=== PATIENT | male | born 1955 | race Caucasian/White ===

== ENCOUNTER 2016-10-09 07:15 | Emergency (ER) | payer SELFPAY ==
--- NOTE | 2016-10-09 07:44 | EDM.PDOC ---
ED HPI GENERAL MEDICAL PROBLEM - General Chief Complaint: Genitourinary Problem Stated Complaint: SICK Time Seen by Provider: 10/09/16 07:43 Source of Information: Reports: Patient History Limitations: Reports: No Limitations - History of Present Illness INITIAL COMMENTS - FREE TEXT/NARRATIVE: HISTORY AND PHYSICAL: History of present illness: [61-year-old male with a history of prior urinary tract infection patient of Dr. Styles shaking the urologist, now presents emergency department feeling like he still needs to urinate even immediately after voiding. His been having these symptoms for about 2 days. Patient goes to the bathroom and then feels like he still needs to go. It's now become unbearable so he came to the emergency department. No fevers chills sweats or shaking chills. Patient has no history of prostate pathology or prior urinary retention Review of systems: As per history of present illness and below otherwise all systems reviewed and negative. Past medical history: As per history of present illness and as reviewed below otherwise noncontributory. Surgical history: As per history of present illness and as reviewed below otherwise noncontributory. Social history: No reported history of drug or alcohol abuse. Family history: As per history of present illness and as reviewed below otherwise noncontributory. Physical exam: After Velez catheter placement patient is smiling well-appearing and asymptomatic. He has no suprapubic tenderness. 500 mL of urine output and Velez bag clear urine no hematuria yellow in color no CVA tenderness nontender abdomen and pelvis. No penile or testicular abnormality HEENT: Atraumatic, normocephalic, pupils reactive, negative for conjunctival pallor or scleral icterus, mucous membranes moist, throat clear, neck supple, nontender, trachea midline. Lungs: Clear to auscultation, breath sounds equal bilaterally, chest nontender. Heart: S1S2, regular, negative for clicks, rubs, or JVD. Abdomen: Soft, nondistended, nontender. Negative for masses or hepatosplenomegaly. Negative for costovertebral tenderness. Pelvis: Stable nontender. Genitourinary: Deferred. Rectal: Deferred. Extremities: Atraumatic, negative for cords or calf pain. Neurovascular unremarkable. Neuro: Awake, alert, oriented. Cranial nerves grossly unremarkable. Cerebellum unremarkable. Motor and sensory unremarkable throughout. Exam nonfocal. Diagnostics: [] Therapeutics: [Velez catheter placement by nurse/ER Tomi After assessment of 500 mL residual postvoid with bladder scanner No complications of placement. 500 mL urine output. Patient tolerated well no complications is now smiling and feels great. Impression: [Acute urinary retention] Plan: [Signs and symptoms consistent with new onset acute urinary retention in a 7- year-old patient with no history thereof he does see urologist as previously had a UTI but never had any prostate problems nor any issues with obstruction or retention. He is asymptomatic after Velez catheter placement and urinalysis pending as well as a BMP to assess renal function. Will discuss case with Dr. Genaro Lopez patients urologist and arrange outpatient follow-up. Labs are unremarkable patient agrees with outpatient follow-up and strict return precautions will be given. Patient will use the Velez with a leg bag until follow-up with urology] Definitive disposition and diagnosis as appropriate pending reevaluation and review of above. - Related Data Allergies Allergy/AdvReac Type Severity Reaction Status Date / Time No Known Allergies Allergy Verified 10/09/16 07:28 Home Meds: Home Meds Cephalexin [Keflex] 500 mg PO QID 14 Days 10/09/16 [Rx] Tamsulosin HCl [Flomax] 0.4 mg PO DAILY #10 cap.er.24h 10/09/16 [Rx] Past Medical History - Past Health History Medical/Surgical History: Denies Medical/Surgical History HEENT History: Reports: Hard of Hearing Other HEENT History: wears glasses Cardiovascular History: Reports: None Other Cardiovascular History: is taking an OTC medication for hypertension Respiratory History: Reports: None Gastrointestinal History: Reports: None Genitourinary History: Reports: None Musculoskeletal History: Reports: Fracture Other Musculoskeletal History: right clavicle Neurological History: Reports: None Psychiatric History: Reports: None Endocrine/Metabolic History: Reports: Obesity/BMI 30+ Hematologic History: Reports: None Immunologic History: Reports: None Oncologic (Cancer) History: Reports: None Dermatologic History: Reports: None - Past Surgical History Head Surgeries/Procedures: Reports: None Cardiovascular Surgical History: Reports: None Respiratory Surgical History: Reports: None GI Surgical History: Reports: None Male Surgical History: Reports: None Endocrine Surgical History: Reports: None Neurological Surgical History: Reports: None Musculoskeletal Surgical History: Reports: None Oncologic Surgical History: Reports: None Dermatological Surgical History: Reports: None Social & Family History - Family History Family Medical History: Noncontributory - Tobacco Use Smoking Status *Q: Never Smoker - Caffeine Use Caffeine Use: Reports: Soda - Recreational Drug Use Recreational Drug Use: No Drug Use in Last 12 Months: No ED ROS GENERAL - Review of Systems Review Of Systems: See Below (History of present illness) ED EXAM, GENERAL - Physical Exam Exam: See Below (History of present illness) Course - Vital Signs Last Recorded V/S: Last Vital Signs Temp 37.2 C 10/09/16 07:24 Pulse 121 H 10/09/16 07:24 Resp 18 10/09/16 07:24 BP 198/113 H 10/09/16 07:24 Pulse Ox 94 L 10/09/16 07:24 - Orders/Labs/Meds Orders: Active Orders 24 hr Category Date Time Status Velez Catheter Insertion [Insert Urinary Catheter] [OM. Care 10/09/16 07:45 Ordered PC] Q24H Urinary Catheter Assessment [RC] ASDIRECTED Care 10/09/16 07:39 Active CULTURE URINE [RM] Stat Lab 10/09/16 07:50 Received Labs: Laboratory Tests 10/09/16 10/09/16 Range/Units 07:50 07:53 Sodium 142 (136-146) mmol/L Potassium 4.0 (3.5-5.1) mmol/L Chloride 108 (98-110) mmol/L Carbon Dioxide 23 (21-31) mmol/L BUN 16 (6.0-23.0) mg/dL Creatinine 0.9 (0.6-1.5) mg/dL Est Cr Clr Drug Dosing 87.28 mL/min Estimated GFR (MDRD) > 60.0 ml/min Glucose 121 H (60-110) mg/dL Calcium 9.3 (8.8-10.8) mg/dL Urine Color YELLOW Urine Appearance CLEAR Urine pH 7.0 (5.0-8.0) Ur Specific [place] 1.025 (1.001-1.035) Urine Protein >=300 (NEGATIVE) mg/dL Urine Glucose (UA) NEGATIVE (NEGATIVE) mg/dL Urine Ketones TRACE H (NEGATIVE) mg/dL Urine Occult Blood LARGE H (NEGATIVE) Urine Nitrite POSITIVE H (NEGATIVE) Urine Bilirubin NEGATIVE (NEGATIVE) Urine Urobilinogen 1.0 (<2.0) EU/dL Ur Leukocyte Esterase MODERATE (NEGATIVE) Urine RBC 55-60 (0-2/HPF) Urine WBC TO NUMEROUS TO COUNT H (0-5/HPF) Ur Epithelial Cells RARE (NONE-FEW) Urine Bacteria 1+ H (NEGATIVE) Meds: Medications Discontinued Medications Generic Name Dose Route Start Last Admin Trade Name Malika PRN Reason Stop Dose Admin Cephalexin 500 mg 10/09/16 08:16 10/09/16 08:36 Keflex PO 10/09/16 08:17 500 mg ONETIME ONE Administration Departure - Departure Time of Disposition: 08:30 Disposition: Home, Self-Care 01 Condition: Good Clinical Impression: Acute urinary retention - Discharge Information Prescriptions: Cephalexin [Keflex] 500 mg PO QID 14 Days Tamsulosin HCl [Flomax] 0.4 mg PO DAILY #10 cap.er.24h Instructions: Acute Urinary Retention, Male, [id number] Referrals: PCP,None [Primary Care Provider] - Genaro Lopez MD [Physician] - Forms: ED Department Discharge Additional Instructions: You're suffering from urinary retention today. This means that something was blocking your urine from getting out of your bladder was causing your discomfort. We placed a Velez catheter in your urine was drained and had relief this catheter will need to stay in place with a leg bag until follow-up with urology in several days. Take Flomax as directed daily, follow-up with Dr. Navarro as directed, and return immediately for new severe or worsening symptoms specifically if you suspect the tube may have been clogged if you are experiencing the same symptoms of needing to void without the ability to do so. - My Orders Last 24 Hours: My Active Orders 10/09/16 07:39 Urinary Catheter Assessment [RC] ASDIRECTED 10/09/16 07:45 Velez Catheter Insertion [Insert Urinary Catheter] [OM.PC] Q24H 10/09/16 07:50 CULTURE URINE [RM] Stat - Assessment/Plan Last 24 Hours: My Active Orders 10/09/16 07:39 Urinary Catheter Assessment [RC] ASDIRECTED 10/09/16 07:45 Velez Catheter Insertion [Insert Urinary Catheter] [OM.PC] Q24H 10/09/16 07:50 CULTURE URINE [RM] Stat
[2016-10-09] MEDS ORDERED: Cephalexin 500 MG Cap PO ONE (08:16)
[2016-10-09 08:30] LABS: CHLORIDE,CL 108 mmol/L (98-110); SODIUM,NA 142 mmol/L (136-146)
[2016-10-09 09:34] VITALS: BP 138/72
== END 2016-10-09 09:33 | disposition home or self-care (01) ==
LOC: MW.ED 07:15
DX: N39.0 Urinary tract infection, site not specified (principal); E66.9 Obesity, unspecified; Z79.899 Other long term (current) drug therapy; Z68.41 Body mass index [BMI] 40.0-44.9, adult
CPT/HCPCS: 36415; 51702; 80048; 81001; 87086; 99283; A9270

== ENCOUNTER 2017-02-03 09:06 | Emergency (ER) | payer SELFPAY ==
--- NOTE | 2017-02-03 09:21 | EDM.PDOC ---
ED HPI GENERAL MEDICAL PROBLEM - General Chief Complaint: Genitourinary Problem Stated Complaint: DIFFICULTY URINATING Time Seen by Provider: 02/03/17 09:06 - History of Present Illness INITIAL COMMENTS - FREE TEXT/NARRATIVE: HISTORY AND PHYSICAL: History of present illness: Patient is 62-year-old white male presents with concern of urinary retention 1 day patient has history of known prostate disease and is followed by urology he denies fever chills nausea vomiting or other complaints Review of systems: As per history of present illness and below otherwise all systems reviewed and negative. Past medical history: As per history of present illness and as reviewed below otherwise noncontributory. Surgical history: As per history of present illness and as reviewed below otherwise noncontributory. Social history: No reported history of drug or alcohol abuse. Family history: As per history of present illness and as reviewed below otherwise noncontributory. Physical exam: HEENT: Atraumatic, normocephalic, pupils reactive, negative for conjunctival pallor or scleral icterus, mucous membranes moist, throat clear, neck supple, nontender, trachea midline. Lungs: Clear to auscultation, breath sounds equal bilaterally, chest nontender. Heart: S1S2, regular, negative for clicks, rubs, or JVD. Abdomen: Soft, nondistended, suprapubic discomfort to palpation consistent with bladder distention. Negative for masses or hepatosplenomegaly. Negative for costovertebral tenderness. Pelvis: Stable nontender. Genitourinary: Deferred. Rectal: Deferred. Extremities: Atraumatic, negative for cords or calf pain. Neurovascular unremarkable. Neuro: Awake, alert, oriented. Cranial nerves II through XII unremarkable. Cerebellum unremarkable. Motor and sensory unremarkable throughout. Exam nonfocal. Diagnostics: CBC CMP UA urine C&S Therapeutics: Velez catheter with leg bag Impression: #1 acute urinary retention #2 history of prostatic hypertrophy Definitive disposition and diagnosis as appropriate pending reevaluation and review of above. penile area Pain Score (Numeric/FACES): 5 - Related Data Allergies Allergy/AdvReac Type Severity Reaction Status Date / Time No Known Allergies Allergy Verified 02/03/17 09:12 Home Meds: Home Meds Cephalexin [Keflex] 500 mg PO QID 14 Days capsule 10/09/16 [Rx] Tamsulosin HCl [Flomax] 0.4 mg PO DAILY #10 cap.er.24h 10/09/16 [Rx] Past Medical History - Past Health History Medical/Surgical History: Denies Medical/Surgical History HEENT History: Reports: Hard of Hearing Other HEENT History: wears glasses Cardiovascular History: Reports: None Other Cardiovascular History: is taking an OTC medication for hypertension Respiratory History: Reports: None Gastrointestinal History: Reports: None Genitourinary History: Reports: None Musculoskeletal History: Reports: Fracture Other Musculoskeletal History: right clavicle Neurological History: Reports: None Psychiatric History: Reports: None Endocrine/Metabolic History: Reports: Obesity/BMI 30+ Hematologic History: Reports: None Immunologic History: Reports: None Oncologic (Cancer) History: Reports: None Dermatologic History: Reports: None - Past Surgical History Head Surgeries/Procedures: Reports: None Cardiovascular Surgical History: Reports: None Respiratory Surgical History: Reports: None GI Surgical History: Reports: None Male Surgical History: Reports: None Endocrine Surgical History: Reports: None Neurological Surgical History: Reports: None Musculoskeletal Surgical History: Reports: None Oncologic Surgical History: Reports: None Dermatological Surgical History: Reports: None Social & Family History - Family History Family Medical History: Noncontributory - Tobacco Use Smoking Status *Q: Never Smoker - Caffeine Use Caffeine Use: Reports: Soda - Recreational Drug Use Recreational Drug Use: No Drug Use in Last 12 Months: No ED ROS GENERAL - Review of Systems Review Of Systems: ROS reveals no pertinent complaints other than HPI. ED EXAM, GENERAL - Physical Exam Exam: See Below (Dictation) Course - Vital Signs Last Recorded V/S: Last Vital Signs Temp 37.1 C 02/03/17 09:13 Pulse 100 02/03/17 09:13 Resp 18 02/03/17 09:13 BP 205/151 H 02/03/17 09:13 Pulse Ox 98 02/03/17 09:13 - Orders/Labs/Meds Orders: Active Orders 24 hr Category Date Time Status Insert Velez Catheter [Insert Urinary Catheter] [OM.PC] Care 02/03/17 09:15 Ordered Q24H Urinary Catheter Assessment [RC] ASDIRECTED Care 02/03/17 09:08 Active COMPREHENSIVE METABOLIC PN,CMP [CHEM] Stat Lab 02/03/17 09:38 Received CULTURE URINE [RM] Stat Lab 02/03/17 09:32 Received Labs: Laboratory Tests 02/03/17 02/03/17 Range/Units 09:32 09:38 WBC 6.60 (4.0-11.0) K/uL RBC 4.80 (4.50-5.90) M/uL Hgb 14.2 (13.0-17.0) g/dL Hct 42.6 (38.0-50.0) % MCV 88.8 (80.0-98.0) fL MCH 29.6 (27.0-32.0) pg MCHC 33.3 (31.0-37.0) g/dL RDW Std Deviation 41.4 (28.0-62.0) fl RDW Coeff of Quan 13 (11.0-15.0) % Plt Count 207 (150-400) K/uL MPV 10.30 (7.40-12.00) fL Neut % (Auto) 73.9 (48.0-80.0) % Lymph % (Auto) 17.7 (16.0-40.0) % Bibb % (Auto) 6.4 (0.0-15.0) % Eos % (Auto) 1.5 (0.0-7.0) % Baso % (Auto) 0.5 (0.0-1.5) % Neut # (Auto) 4.9 (1.4-5.7) K/uL Lymph # (Auto) 1.2 (0.6-2.4) K/uL Bibb # (Auto) 0.4 (0.0-0.8) K/uL Eos # (Auto) 0.1 (0.0-0.7) K/uL Baso # (Auto) 0.0 (0.0-0.1) K/uL Nucleated RBC % 0.0 /100WBC Nucleated RBCs # 0 K/uL Urine Color YELLOW Urine Appearance CLEAR Urine pH 6.0 (5.0-8.0) Ur Specific [place] 1.010 (1.001-1.035) Urine Protein NEGATIVE (NEGATIVE) mg/dL Urine Glucose (UA) NEGATIVE (NEGATIVE) mg/dL Urine Ketones NEGATIVE (NEGATIVE) mg/dL Urine Occult Blood NEGATIVE (NEGATIVE) Urine Nitrite NEGATIVE (NEGATIVE) Urine Bilirubin NEGATIVE (NEGATIVE) Urine Urobilinogen 0.2 (<2.0) EU/dL Ur Leukocyte Esterase NEGATIVE (NEGATIVE) Urine RBC 0-1 (0-2/HPF) Urine WBC 0-1 (0-5/HPF) Ur Epithelial Cells RARE (NONE-FEW) Urine Bacteria FEW (NEGATIVE) Departure - Departure Time of Disposition: 09:18 Disposition: Home, Self-Care 01 Condition: Good Clinical Impression: Urinary retention - Discharge Information Referrals: PCP,Unknown [Primary Care Provider] - Forms: ED Department Discharge Additional Instructions: The following information is given to patients seen in the emergency department who are being discharged to home. This information is to outline your options for follow-up care. We provide all patients seen in our emergency department with a follow-up referral. The need for follow-up, as well as the timing and circumstances, are variable depending upon the specifics of your emergency department visit. If you don't have a primary care physician on staff, we will provide you with a referral. We always advise you to contact your personal physician following an emergency department visit to inform them of the circumstance of the visit and for follow-up with them and/or the need for any referrals to a consulting specialist. The emergency department will also refer you to a specialist when appropriate. This referral assures that you have the opportunity for followup care with a specialist. All of these measure are taken in an effort to provide you with optimal care, which includes your followup. Under all circumstances we always encourage you to contact your private physician who remains a resource for coordinating your care. When calling for followup care, please make the office aware that this follow-up is from your recent emergency room visit. If for any reason you are refused follow-up, please contact the [facility] emergency department at and asked to speak to the emergency department charge nurse. [facility] - Urology [address] [place] [id number] Leg bag as discussed follow-up urology above as discussed call to schedule appointment return as needed as discussed - My Orders Last 24 Hours: My Active Orders 02/03/17 09:08 Urinary Catheter Assessment [RC] ASDIRECTED 02/03/17 09:15 Insert Velez Catheter [Insert Urinary Catheter] [OM.PC] Q24H 02/03/17 09:32 CULTURE URINE [RM] Stat 02/03/17 09:38 COMPREHENSIVE METABOLIC PN,CMP [CHEM] Stat - Assessment/Plan Last 24 Hours: My Active Orders 02/03/17 09:08 Urinary Catheter Assessment [RC] ASDIRECTED 02/03/17 09:15 Insert Velez Catheter [Insert Urinary Catheter] [OM.PC] Q24H 02/03/17 09:32 CULTURE URINE [RM] Stat 02/03/17 09:38 COMPREHENSIVE METABOLIC PN,CMP [CHEM] Stat
[2017-02-03 10:07] LABS: CHLORIDE,CL 104 mmol/L (98-110); SODIUM,NA 137 mmol/L (136-146)
[2017-02-03 10:14] VITALS: BP 202/85
== END 2017-02-03 10:38 | disposition home or self-care (01) ==
LOC: MW.ED 09:06
DX: R33.9 Retention of urine, unspecified (principal); Z79.899 Other long term (current) drug therapy; Z87.448 Personal history of other diseases of urinary system
CPT/HCPCS: 36415; 51702; 80053; 81001; 85025; 87086; 99284

== ENCOUNTER 2017-03-26 13:59 | Inpatient (IN) | payer BC ==
[~2017-03-26 13:59] MED LIST: Sodium Chloride 0.9% 10 ML Syringe FLUSH PRN; Sodium Chloride 0.9% 2.5 ML Syringe FLUSH PRN
[2017-03-26] MEDS: Lactated Ringers 1,000 ML IV SCH (14:57)
[2017-03-26] MEDS: Ampicillin 2 GM in Sodium Chloride 0.9% 100 ML IV SCH ×4 (14:57→20:41)
[2017-03-26 16:46] LABS: CHLORIDE,CL 103 mmol/L (98-110); SODIUM,NA 138 mmol/L (136-146)
[2017-03-27] MEDS: Ampicillin 2 GM in Sodium Chloride 0.9% 100 ML IV SCH ×4 (02:17→20:18)
--- NOTE | 2017-03-27 08:54 | PCM.PREANE ---
Preanesthetic Assessment - Anesthesia/Transfusion/Family Hx Anesthesia History: Prior Anesthesia Without Reaction Family History of Anesthesia Reaction: No Transfusion History: Prior Transfusion Without Reaction - Review of Systems General: No Symptoms Pulmonary: No Symptoms Cardiovascular: No Symptoms Gastrointestinal: No Symptoms Neurological: No Symptoms Other: Reports: None (urinary retention, has gallegos) - Physical Assessment NPO Status Date: 03/26/17 NPO Status Time: 16:30 O2 Sat by Pulse Oximetry: 96 Respiratory Rate: 14 Vital Signs: Last Vital Signs Temp 36.6 C 03/27/17 08:00 Pulse 81 03/27/17 08:00 Resp 14 03/27/17 08:00 BP 127/72 03/27/17 08:00 Pulse Ox 96 03/27/17 08:00 Height: 1.75 m Weight: 124.693 kg ASA Class: 2 Mental Status: Alert & Oriented x3 Airway Class: Mallampati = 2 Dentition: Reports: [place](s), Bridge ROM/Head Extension: Full Lungs: Clear to Auscultation, Normal Respiratory Effort Cardiovascular: Regular Rate, Regular Rhythm - Lab Values: Laboratory Last Values WBC 7.97 K/uL (4.0-11.0) 03/26/17 16:18 RBC 5.13 M/uL (4.50-5.90) 03/26/17 16:18 Hgb 14.8 g/dL (13.0-17.0) 03/26/17 16:18 Hct 45.0 % (38.0-50.0) 03/26/17 16:18 MCV 87.7 fL (80.0-98.0) 03/26/17 16:18 MCH 28.8 pg (27.0-32.0) 03/26/17 16:18 MCHC 32.9 g/dL (31.0-37.0) 03/26/17 16:18 RDW Std Deviation 42.4 fl (28.0-62.0) 03/26/17 16:18 RDW Coeff of Quan 13 % (11.0-15.0) 03/26/17 16:18 Plt Count 190 K/uL (150-400) 03/26/17 16:18 MPV 10.20 fL (7.40-12.00) 03/26/17 16:18 Neut % (Auto) 71.5 % (48.0-80.0) 03/26/17 16:18 Lymph % (Auto) 17.3 % (16.0-40.0) 03/26/17 16:18 [place] % (Auto) 8.3 % (0.0-15.0) 03/26/17 16:18 Eos % (Auto) 2.4 % (0.0-7.0) 03/26/17 16:18 Baso % (Auto) 0.5 % (0.0-1.5) 03/26/17 16:18 Neut # (Auto) 5.7 K/uL (1.4-5.7) 03/26/17 16:18 Lymph # (Auto) 1.4 K/uL (0.6-2.4) 03/26/17 16:18 Bradley # (Auto) 0.7 K/uL (0.0-0.8) 03/26/17 16:18 Eos # (Auto) 0.2 K/uL (0.0-0.7) 03/26/17 16:18 Baso # (Auto) 0.0 K/uL (0.0-0.1) 03/26/17 16:18 Nucleated RBC % 0.0 /100WBC 03/26/17 16:18 Nucleated RBCs # 0 K/uL 03/26/17 16:18 Sodium 138 mmol/L (136-146) 03/26/17 16:18 Potassium 4.5 mmol/L (3.5-5.1) 03/26/17 16:18 Chloride 103 mmol/L (98-110) 03/26/17 16:18 Carbon Dioxide 25 mmol/L (21-31) 03/26/17 16:18 BUN 12 mg/dL (6.0-23.0) 03/26/17 16:18 Creatinine 0.8 mg/dL (0.6-1.5) 03/26/17 16:18 Est Cr Clr Drug Dosing 96.97 mL/min 03/26/17 16:18 Estimated GFR (MDRD) > 60.0 ml/min 03/26/17 16:18 Glucose 104 mg/dL (60-110) 03/26/17 16:18 Calcium 9.3 mg/dL (8.8-10.8) 03/26/17 16:18 - Allergies Allergies/Adverse Reactions: Allergies Allergy/AdvReac Type Severity Reaction Status Date / Time No Known Allergies Allergy Verified 02/03/17 09:12 - Acknowledgements Anesthesia Type Planned: Spinal Pt an Appropriate Candidate for the Planned Anesthesia: Yes Alternatives and Risks of Anesthesia Discussed w Pt/Guardian: Yes Pt/Guardian Understands and Agrees with Anesthesia Plan: Yes PreAnesthesia Questionnaire - Past Health History Medical/Surgical History: Denies Medical/Surgical History HEENT History: Reports: Hard of Hearing Other HEENT History: wears glasses Cardiovascular History: Reports: None Other Cardiovascular History: is taking an OTC medication for hypertension Respiratory History: Reports: None Gastrointestinal History: Reports: None Genitourinary History: Reports: None Other Genitourinary History: Enlarged Prostate Musculoskeletal History: Reports: Fracture Other Musculoskeletal History: right clavicle Neurological History: Reports: None Psychiatric History: Reports: None Endocrine/Metabolic History: Reports: Obesity/BMI 30+ Hematologic History: Reports: None Immunologic History: Reports: None Oncologic (Cancer) History: Reports: None Dermatologic History: Reports: None - Infectious Disease History Infectious Disease History: Reports: None - Past Surgical History Head Surgeries/Procedures: Reports: None Cardiovascular Surgical History: Reports: None Respiratory Surgical History: Reports: None GI Surgical History: Reports: None Male Surgical History: Reports: None Endocrine Surgical History: Reports: None Neurological Surgical History: Reports: None Musculoskeletal Surgical History: Reports: None Oncologic Surgical History: Reports: None Dermatological Surgical History: Reports: None - SUBSTANCE USE Smoking Status *Q: Never Smoker Recreational Drug Use History: No - HOME MEDS Home Medications: Home Meds Cephalexin [Keflex] 500 mg PO QID 14 Days capsule 10/09/16 [Rx] Tamsulosin HCl [Flomax] 0.4 mg PO DAILY #10 cap.er.24h 10/09/16 [Rx] - CURRENT (IN HOUSE) MEDS Current Meds: Current Medications Lactated Ringer's (Ringers, Lactated) 1,000 mls @ 50 mls/hr IV ASDIRECTED [facility] Last Admin: 03/26/17 14:57 Dose: 50 mls/hr Ampicillin Sodium 2 gm/ Sodium (Chloride) 100 mls @ 200 mls/hr IV Q6H [facility] Last Admin: 03/27/17 08:00 Dose: 200 mls/hr Tobramycin 120 mg/ Sodium (Chloride) 53 mls @ 53 mls/hr IV Q12H [facility] Last Admin: 03/27/17 02:52 Dose: 53 mls/hr Sodium Chloride (Saline Flush) 10 ml FLUSH ASDIRECTED PRN PRN Reason: Keep Vein Open Sodium Chloride (Saline Flush) 2.5 ml FLUSH ASDIRECTED PRN PRN Reason: Keep Vein Open Discontinued Medications Ampicillin Sodium 2 gm/ Sodium (Chloride) 100 mls @ 200 mls/hr IV Q6H [facility] Last Admin: 03/26/17 15:31 Dose: Not Given Tobramycin 120 mg/ Sodium (Chloride) 103 mls @ 103 mls/hr IV Q12H [facility] Last Admin: 03/26/17 15:30 Dose: Not Given
[2017-03-27] MEDS ORDERED: Lidocaine 2% 5 ML SDV ONE (09:33)
[2017-03-27] MEDS ORDERED: Propofol 200 MG/20 ML SDV ONE (09:34)
[2017-03-27] MEDS ORDERED: Midazolam 1 MG/ML 2 ML SDV ONE (09:34)
[2017-03-27] MEDS ORDERED: fentaNYL 100 MCG/2 ML SDV ONE (09:34)
[2017-03-27] MEDS ORDERED: ePHEDrine 50 MG/ML SDV ONE ×2 (09:37→13:07)
[2017-03-27] MEDS ORDERED: fentaNYL 100 MCG/2 ML SDV IVPUSH PRN (10:39)
[2017-03-27] MEDS ORDERED: Belladonna Alkaloids/Opium 16.2-30 MG Supp RECTAL PRN (12:03)
--- NOTE | 2017-03-27 12:49 | PCM.POSTAN ---
POST ANESTHESIA ASSESSMENT - MENTAL STATUS Mental Status: Alert, Oriented - RESPIRATORY Respiratory Status: Respiratory Rate WNL, Airway Patent, O2 Saturation Stable - CARDIOVASCULAR CV Status: Pulse Rate WNL, Blood Pressure Stable - GASTROINTESTINAL GI Status: No Symptoms - POST OP HYDRATION Hydration Status: Adequate & Stable
--- NOTE | 2017-03-27 12:54 | OR ---
SURGEON: Genaro Lopez M.D. DATE OF PROCEDURE: 03/27/2017 PREOPERATIVE DIAGNOSIS: Urine retention secondary to benign prostatic hypertrophy. POSTOPERATIVE DIAGNOSIS: Urine retention secondary to benign prostatic hypertrophy. OPERATION: TURP. ANESTHESIA: Spinal. ESTIMATED BLOOD LOSS: 300 mL. RESECTION TIME: 1 hour and 15 minutes. DESCRIPTION OF PROCEDURE: The patient was given spinal anesthesia, placed in dorsal lithotomy position, prepped and draped in sterile drapes. A 28-Kiswahili resectoscope was introduced in the bladder without difficulty. The prostate was resected in the usual manner, from the floor to the lateral lobe and anterior lobe. At the end of the resection, all prostatic chips were removed. Both ureteral orifices were intact. External sphincter was intact. A 22 three-way Velez catheter with 7 mL in the balloon was left in the bladder, connected to the TUR drip. The patient tolerated the procedure well and was moved to recovery room in good condition. DESIREE / IMTIAZ /[id number]
[2017-03-27] MEDS ORDERED: Ketorolac 30 MG/ML SDV ONE (13:35)
[2017-03-27] MEDS ORDERED: Ondansetron 4 MG/2 ML SDV ONE (13:35)
[2017-03-27] MEDS: Lactated Ringers 1,000 ML IV SCH (15:32)
[2017-03-27] MEDS: Docusate Sodium 100 MG Cap PO SCH (20:20)
[2017-03-28] MEDS: Lactated Ringers 1,000 ML IV SCH ×2 (00:27→09:18)
[2017-03-28] MEDS: Ampicillin 2 GM in Sodium Chloride 0.9% 100 ML IV SCH ×4 (02:15→20:04)
[2017-03-28] MEDS: Docusate Sodium 100 MG Cap PO SCH ×2 (08:53→20:07)
--- NOTE | 2017-03-28 10:12 | PCM.SURGPN ---
- General Info Date of Service: 03/28/17 Date of Surgery/Procedure: 03/27/17 POD#: 1 Functional Status: Reports: Pain Controlled - Review of Systems General: Reports: No Symptoms HEENT: Reports: No Symptoms Pulmonary: Reports: No Symptoms Cardiovascular: Reports: No Symptoms Gastrointestinal: Reports: No Symptoms Genitourinary: Reports: No Symptoms Musculoskeletal: Reports: No Symptoms Skin: Reports: No Symptoms Neurological: Reports: No Symptoms Psychiatric: Reports: No Symptoms - Patient Data Vitals - Most Recent: Last Vital Signs Temp 99.4 F 03/28/17 07:53 Pulse 76 03/28/17 07:53 Resp 18 03/28/17 07:53 BP 156/80 H 03/28/17 07:53 Pulse Ox 95 03/28/17 07:53 Weight - Most Recent: 274 lb 14.4 oz I&O - Last 24 Hours: Intake & Output 03/27/17 03/28/17 03/28/17 19:59 03:59 11:59 Intake Total 3068 1150 Output Total 200 Balance 2868 1150 Lab Results Last 24 Hrs: Laboratory Results - last 24 hr 03/27/17 03/27/17 03/28/17 Range/Units 14:25 14:25 05:06 WBC 7.94 (4.0-11.0) K/uL RBC 4.69 (4.50-5.90) M/uL Hgb 13.2 13.3 (13.0-17.0) g/dL Hct 41.5 (38.0-50.0) % MCV 88.5 (80.0-98.0) fL MCH 28.4 (27.0-32.0) pg MCHC 32.0 (31.0-37.0) g/dL RDW Std Deviation 43.6 (28.0-62.0) fl RDW Coeff of Quan 13 (11.0-15.0) % Plt Count 180 (150-400) K/uL MPV 10.10 (7.40-12.00) fL Neut % (Auto) 64.5 (48.0-80.0) % Lymph % (Auto) 23.0 (16.0-40.0) % Millard % (Auto) 9.8 (0.0-15.0) % Eos % (Auto) 2.3 (0.0-7.0) % Baso % (Auto) 0.4 (0.0-1.5) % Neut # (Auto) 5.1 (1.4-5.7) K/uL Lymph # (Auto) 1.8 (0.6-2.4) K/uL Millard # (Auto) 0.8 (0.0-0.8) K/uL Eos # (Auto) 0.2 (0.0-0.7) K/uL Baso # (Auto) 0.0 (0.0-0.1) K/uL Nucleated RBC % 0.0 /100WBC Nucleated RBCs # 0 K/uL Sodium 140 (136-146) mmol/L Potassium 4.2 (3.5-5.1) mmol/L Med Orders - Current: Current Medications Belladonna Alkaloids/Opium (B & O Supprettes No. 15a) 1 supp RECTAL Q6H PRN PRN Reason: Bladder Spasms Last Admin: 03/27/17 20:21 Dose: 1 supp Docusate Sodium (Colace) 100 mg PO BID [facility] Last Admin: 03/28/17 08:53 Dose: 100 mg Fentanyl (Sublimaze) 50 mcg IVPUSH Q5M PRN PRN Reason: Pain (severe 7-10) Stop: 03/28/17 10:39 Ampicillin Sodium 2 gm/ Sodium (Chloride) 100 mls @ 200 mls/hr IV Q6H [facility] Last Admin: 03/28/17 08:36 Dose: 200 mls/hr Tobramycin 120 mg/ Sodium (Chloride) 53 mls @ 53 mls/hr IV Q12H [facility] Last Admin: 03/28/17 02:47 Dose: 53 mls/hr Sodium Chloride (Saline Flush) 10 ml FLUSH ASDIRECTED PRN PRN Reason: Keep Vein Open Sodium Chloride (Saline Flush) 2.5 ml FLUSH ASDIRECTED PRN PRN Reason: Keep Vein Open Discontinued Medications Ephedrine Sulfate (Ephedrine Sulfate) Confirm Administered Dose 50 mg .ROUTE .STK-MED ONE Stop: 03/27/17 09:38 Ephedrine Sulfate (Ephedrine Sulfate) Confirm Administered Dose 50 mg .ROUTE .STK-MED ONE Stop: 03/27/17 13:08 Fentanyl (Sublimaze) Confirm Administered Dose 100 mcg .ROUTE .STK-MED ONE Stop: 03/27/17 09:35 Lactated Ringer's (Ringers, Lactated) 1,000 mls @ 150 mls/hr IV ASDIRECTED [facility] Last Admin: 03/28/17 09:18 Dose: 50 mls/hr Ampicillin Sodium 2 gm/ Sodium (Chloride) 100 mls @ 200 mls/hr IV Q6H [facility] Last Admin: 03/26/17 15:31 Dose: Not Given Tobramycin 120 mg/ Sodium (Chloride) 103 mls @ 103 mls/hr IV Q12H [facility] Last Admin: 03/26/17 15:30 Dose: Not Given Ketorolac Tromethamine (Toradol) Confirm Administered Dose 30 mg .ROUTE .STK- MED ONE Stop: 03/27/17 13:36 Lidocaine (Xylocaine-Mpf 2%) Confirm Administered Dose 10 ml .ROUTE .STK-MED ONE Stop: 03/27/17 09:34 Midazolam HCl (Versed 1 Mg/Ml) Confirm Administered Dose 2 mg .ROUTE .STK-MED ONE Stop: 03/27/17 09:35 Ondansetron HCl (Zofran) Confirm Administered Dose 4 mg .ROUTE .STK-MED ONE Stop: 03/27/17 13:36 Propofol (Diprivan 20 Ml) Confirm Administered Dose 400 mg .ROUTE .STK-MED ONE Stop: 03/27/17 09:35 - Exam Wound/Incisions: Healing Well HEENT: Pupils Equal, Pupils Reactive Neck: Supple Lungs: Clear to Auscultation Cardiovascular: Regular Rate GI/Abdominal Exam: Normal Bowel Sounds Extremities: Normal Inspection Skin: Warm Neurological: No New Focal Deficit Psy/Mental Status: Alert, Normal Affect, Normal Mood - Problem List Review Problem List Initiated/Reviewed/Updated: Yes - My Orders Last 24 Hours: Active Orders 24 hr Category Date Time Status Admission Status [Patient Status] [ADT] Routine ADT 03/27/17 12:07 Active Regular Diet [DIET] Diet 03/27/17 Dinner Active CBC WITH AUTO DIFF [HEME] AM Lab 03/29/17 05:11 Ordered ELECTROLYTES,LYTES [CHEM] AM Lab 03/29/17 05:11 Ordered Belladonna/Opium [B & O Supprettes No. 15A] Med 03/27/17 12:03 Active 1 supp RECTAL Q6H PRN Docusate Sodium [Colace] Med 03/27/17 21:00 Active 100 mg PO BID fentaNYL [Sublimaze] Med 03/27/17 10:39 Active 50 mcg IVPUSH Q5M PRN Medication Orders Belladonna Alkaloids/Opium (B & O Supprettes No. 15a) 1 supp RECTAL Q6H PRN PRN Reason: Bladder Spasms Last Admin: 03/27/17 20:21 Dose: 1 supp Docusate Sodium (Colace) 100 mg PO BID [facility] Last Admin: 03/28/17 08:53 Dose: 100 mg Admin: 03/27/17 20:20 Dose: 100 mg Fentanyl (Sublimaze) 50 mcg IVPUSH Q5M PRN PRN Reason: Pain (severe 7-10) Stop: 03/28/17 10:39 Ampicillin Sodium 2 gm/ Sodium (Chloride) 100 mls @ 200 mls/hr IV Q6H [facility] Last Admin: 03/28/17 08:36 Dose: 200 mls/hr Infusion: 03/28/17 02:45 Dose: 200 mls/hr Admin: 03/28/17 02:15 Dose: 200 mls/hr Infusion: 03/27/17 20:48 Dose: 200 mls/hr Admin: 03/27/17 20:18 Dose: 200 mls/hr Infusion: 03/27/17 16:05 Dose: 200 mls/hr Admin: 03/27/17 15:35 Dose: 200 mls/hr Infusion: 03/27/17 08:30 Dose: 200 mls/hr Admin: 03/27/17 08:00 Dose: 200 mls/hr Infusion: 03/27/17 02:47 Dose: 200 mls/hr Admin: 03/27/17 02:17 Dose: 200 mls/hr Infusion: 03/26/17 21:11 Dose: 200 mls/hr Admin: 03/26/17 20:41 Dose: 200 mls/hr Infusion: 03/26/17 15:27 Dose: 200 mls/hr Admin: 03/26/17 14:57 Dose: 200 mls/hr Tobramycin 120 mg/ Sodium (Chloride) 53 mls @ 53 mls/hr IV Q12H [facility] Last Admin: 03/28/17 02:47 Dose: 53 mls/hr Infusion: 03/27/17 17:30 Dose: 53 mls/hr Admin: 03/27/17 16:30 Dose: 53 mls/hr Infusion: 03/27/17 03:52 Dose: 53 mls/hr Admin: 03/27/17 02:52 Dose: 53 mls/hr Infusion: 03/26/17 16:23 Dose: 53 mls/hr Admin: 03/26/17 15:23 Dose: 53 mls/hr Sodium Chloride (Saline Flush) 10 ml FLUSH ASDIRECTED PRN PRN Reason: Keep Vein Open Sodium Chloride (Saline Flush) 2.5 ml FLUSH ASDIRECTED PRN PRN Reason: Keep Vein Open
[2017-03-29] MEDS: Ampicillin 2 GM in Sodium Chloride 0.9% 100 ML IV SCH ×2 (03:31→07:43)
--- NOTE | 2017-03-29 07:00 | PCM48HPAN ---
Post Anesthesia Note - EVALUATION WITHIN 48HRS OF ANESTHETIC Vital Signs in Normal Range: Yes Patient Participated in Evaluation: Yes Respiratory Function Stable: Yes Airway Patent: Yes Cardiovascular Function Stable: Yes Hydration Status Stable: Yes Pain Control Satisfactory: Yes Nausea and Vomiting Control Satisfactory: Yes Mental Status Recovered: Yes
[2017-03-29] MEDS: Docusate Sodium 100 MG Cap PO SCH (08:49)
[2017-03-29 09:25] VITALS: BP 142/94
--- NOTE | 2017-03-29 12:30 | DISCH ---
DATE OF DISCHARGE: 03/29/2017 PRIMARY CARE PHYSICIAN: Corrine PCP HOSPITAL COURSE: A 62-year-old, he was seen in the office with urine retention, had a prostate ultrasound that showed an adenoma that measured approximately 60 mL. He was admitted to the hospital on the of this month, had IV antibiotics overnight. His catheter was taken out. He was catheterized p.r.n., whenever he needed that. On the , he had a TURP done. Postoperatively, he did very well, remained stable, and was discharged on . At the time of discharge, he is passing his urine without difficulty. The urine is reasonably clear. He is afebrile. Pathology is still pending. He is to come back and see me, if he needs to. He is sent home on Macrobid 100 mg twice daily for 1 week. DESIREE KITCHEN /[id number]
== END 2017-03-29 13:44 | disposition home or self-care (01) | DRG 952 ==
LOC: MW.SDS 13:59 → MW.MS 14:05 → OBSVTOIN 03-27 12:07
PROVIDERS: ADMIT Urology; ATTEND Urology
PROC: 0VB08ZZ Excision of Prostate, Via Natural or Artificial Opening Endoscopic (ICD-10-PCS; principal; 2017-03-27)
DX: R33.9 Retention of urine, unspecified (principal); I10 Essential (primary) hypertension; Z79.899 Other long term (current) drug therapy
CPT/HCPCS: 00914; 36415; 51701; 80048; 80051; 84132; 84295; 85018; 85025; 88305; A9270-GY; J0290; J1885; J2250; J2405; J2704; J3010; J3260; J7030; J7050; J7120